=== PATIENT | male | born 1950 | race Caucasian/White ===

== ENCOUNTER 2019-12-28 04:53 | Emergency (ER) | payer OTHER ==
[~2019-12-28] VITALS: Ht 165.1 cm; Wt 72.6 kg
[~2019-12-28 04:53] MED LIST: [UNRECOGNIZED DRUG - CODE]
[2019-12-28] MEDS ORDERED: METHOCARBAMOL 500 MG TAB PO ONE (06:45)
[2019-12-28] MEDS ORDERED: HYDROcodone-ACET 5/325MG TAB PO ONE (07:30)
[2019-12-28 08:37] VITALS: BP 137/93
== END 2019-12-28 08:37 | disposition home or self-care (01) ==
LOC: ER 04:53
DX: M54.31 Sciatica, right side (principal); M79.651 Pain in right thigh; Z79.899 Other long term (current) drug therapy
CPT/HCPCS: 72100; 73562

== ENCOUNTER 2022-03-27 07:57 | Emergency (ER) | payer OTHER ==
[~2022-03-27] VITALS: Ht 165.1 cm; Wt 73.9 kg
[2022-03-27] MEDS ORDERED: LIDOCAINE 2% JELLY 11ml (GLYDO) UR ONE (08:15)
[2022-03-27] MEDS ORDERED: TAMSULOSIN HYDROCHLORIDE 0.4 MG CAP PO ONE (08:15)
[2022-03-27 09:08] LABS: Urine Amorphous Crystal FEW /hpf (None Seen); Urine Bacteria NONE SEEN /hpf (None Seen); Urine Blood Negative /uL (Negative); Urine Specific Gravity 1.012 (1.001-1.035); Urine WBC 1 /hpf (0 - 3)
[2022-03-27] MEDS ORDERED: CIPR-173 PO (09:41)
[2022-03-27 11:27] VITALS: BP 140/82
== END 2022-03-27 11:48 | disposition home or self-care (01) ==
LOC: ER 07:57
DX: N40.0 Benign prostatic hyperplasia without lower urinary tract symptoms (principal); R33.9 Retention of urine, unspecified
CPT/HCPCS: 51702; 81001

== ENCOUNTER 2025-03-23 12:55 | Emergency (ER) | payer OTHER ==
[~2025-03-23] VITALS: Ht 165.1 cm; Wt 71.3 kg
[~2025-03-23 12:55] MED LIST changes: +CIPR-173 PO
--- NOTE | 2025-03-23 13:51 | ED.PDOC ---
General HPI Comments HPI: 75 y/o M, with PMHx of prostate enlargement and arthritis presents to the ED for CC of urinary retention. Patient reports, that he has been unable to urinate since, 2330 last night (03/22/25). Patient reports, that he took double his prescription of Flomax with no relief. Patient denies abdominal distension, nausea, vomiting, or fever. No other associated symptoms or modifying factors present at this time. Patient is awaiting Urology intervention in May at this hospital by Dr. Barrientos. Past Medical history: PROSTATE ENLARGEMENT, ARTHRITIS, RIGHT NEPHRECTOMY Past Surgical history: DENIES ANY Medications: FLOMAX Social History: Denies smoking, ETOH, and drug use. Allergies: NKA LUMA: HPI: Poor Historian. REVIEW OF SYSTEMS: CONSTITUTIONAL: Denies acute: fever, diaphoresis, chills, generalized weakness. HEAD: Denies acute: headache, photophobia Eyes: Denies acute: Double vision, vision loss, eye pain, eye discharge. EARS: Denies acute: tinnitus, hearing loss, ear discharge, ear pain, THROAT: Denies acute: sore throat, swelling, difficulty swallowing , pain with swallowing, change in voice. NECK: Denies acute: neck pain, neck swelling, stiff neck. HEART: Denies acute : chest pain, palpitations, LUNGS: Denies acute: SOB, wheezing, cough, hemoptysis ABDOMEN: Denies acute: Nausea, Vomiting, diarrhea, melena , hematemesis, hematochezia SKIN: Denies acute: rash, redness, lesions, itchiness. EXTREMITIES: Denies acute: calf pain, numbness, tingling, weakness, denies pain in extremity. Denies acute: Low back pain. Neuro: Denies acute: focal neurological deficit, motor or sensory focal neurological deficit, tremors, seizure like activity, confusion, dizziness, change in mental status, loss of bowel or bladder function, cauda equina like symptoms. : Denies acute: dysuria, hematuria, flank pain, increase in urinary frequency. PSYCH: Denies acute: hallucination, suicidal ideation, homicidal ideation. PHYSICAL EXAM: General: ---[id number]-----acute distress, awake and alert. Head: normocephalic, atraumatic. Neck: supple, trachea is midline, no swelling. Throat: Normal phonation. Eyes:, no erythema, no purulent discharge, no proptosis, no icterus. Heart: regular rate, regular rhythm, no significant murmur appreciated. Lungs: no apparent respiratory distress, Able to speak in full sentences. No wheezing, no rhonchi, no crackles. No stridors Clear to auscultation bilaterally. Abdomen: Suprapubic tender to palpation, non distended, soft, no guarding, no rebound, + bowel sounds. Neuro: Awake, Alert, oriented to name, self, situation, follows commands GCS=15. Speech is normal. Skin: no petechia, no purpura, no cyanosis, non-pale, not jaundice. Lower extremities: --no - Pitting edema no deformity, no focal swelling, no calf TTP. Makes eye contact. moves all four extremities. Face: no apparent facial droop. Ambulating in the ED independently. ED COURSE: DISCLAIMER: This medical document was created using an electronic medical record system with voice recognition software and computerized dictation system. Although this document has been carefully reviewed, there might still be some phonetic and typographical errors. Occasional wrong-word or "sound-alike" substitutions may have occurred due to the inherent limitations of voice recognition software. These areas are purely typographical due to imperfections of the software programs and do not reflect any compromise in the patient's medical care. Please read the chart carefully and recognize, using context, where these substitutions have occurred. Chief Complaint: Urinary Time Seen by MD: 13:10 Primary Care Provider: SULTANA Reviewed notes: Nurses Notes, Medications, Allergies Allergies: Coded Allergies: NO KNOWN ALLERGIES (Unverified , 05/04/10) Home Meds Active Scripts Ciprofloxacin Hcl (Cipro) 500 Mg Tab, 1 TAB PO BID for 7 Days, #14 TAB Prov:DAVID ZAMORA MD 03/27/22 Reported Medications Fexofenadine Hcl (Wendy) 30 Mg/5 Ml Naida 05/04/10 Information Source: Patient Mode of Arrival: Ambulatory Severity: Moderate Inability to void: Moderate Timing: Hours Duration: Since onset Has not urinated for: Hours (12) Prehospital treatment: None Onset: Spontaneous Symptoms: Inability to void History of: None Location: None Penile discharge: None Modifying factors: None associated signs and symptoms: None Was a procedure done? Was a procedure done?: No Differential Diagnosis Kidney stone (Female): N/A Kidney stone (Male): N/A Penile/Scrotal: Urinary Retention Urinary Problem (Male): Bladder Outlet, Bladder Obstruction, Epididymitis, Prostatitis, Plelonephritis, Post op Complications, Renal Failure, Urethritis, Urinary Retention, Urolithiasis, UTI, Other (MALE URINARY PROBLEMSDDX BPH, OBSTRUCTING NEOPLASM, BLADDER PATHOLOGY, OBSTRUCTION STONE. PHYMOSIS/PAPRPHYMOSIS, CAUDA EQUINA SYNDROME, UTI.) Urinary Problem (Female): N/A X-Ray, Labs, Meds, VS Vital Signs Date Time Temp Pulse Resp B/P (MAP) Pulse Ox O2 Delivery O2 Flow Rate FiO2 03/23/25 17:00 61 16 128/72 (90) 99 03/23/25 16:30 98.8 63 16 134/77 (96) 99 98.8 03/23/25 16:30 63 16 99 Room Air* 0 21 03/23/25 15:34 65 16 97 Room Air 03/23/25 15:34 97.5 65 16 132/84 (100) 97 97.5 03/23/25 13:25 97.7 65 17 132/89 (103) 97 97.7 Lab Test 03/23/25 14:04 03/23/25 13:26 Range/Units White Blood Count 6.1 4.4-10.8 10^3/uL Red Blood Count 5.29 4.5-5.90 10^6/uL Hemoglobin 16.3 13.5-17.5 g/dL Hematocrit 46.2 41.0-53.0 % Mean Corpuscular Volume 87.4 80.0-100.0 fL Mean Corpuscular Hemoglobin 30.8 28.0-32.0 pg Mean Corpuscular Hemoglobin Concent 35.2 32.0-36.0 g/dL Red Cell Distribution Width 13.2 11.8-14.3 % Platelet Count 154 140-450 10^3/uL Mean Platelet Volume 6.7 L 6.9-10.8 fL Neutrophils (%) (Auto) 89.2 H 37.0-80.0 % Lymphocytes (%) (Auto) 4.2 L 10.0-50.0 % Monocytes (%) (Auto) 5.8 0.0-12.0 % Eosinophils (%) (Auto) 0.6 0.0-7.0 % Basophils (%) (Auto) 0.2 0.0-2.0 % Neutrophils # (Auto) 5.5 1.6-8.6 10 ^3/uL Lymphocytes # (Auto) 0.3 L 0.4-5.4 10 ^3/uL Monocytes # (Auto) 0.4 0-1.3 10 ^3/uL Eosinophils # (Auto) 0 0-0.8 10 ^3/uL Basophils # (Auto) 0 0-0.2 10 ^3/uL Nucleated Red Blood Cells 0.1 % Sodium Level 142 136-145 mmol/L Potassium Level 4.4 3.5-5.1 mmol/L Chloride Level 106 98-107 mmol/L Carbon Dioxide Level 27 20-31 mmol/L Anion Gap 9 5-15 Blood Urea Nitrogen 23 9-23 mg/dL Creatinine 1.28 0.700-1.30 mg/dL Glomerular Filtration Rate Calc 59 >90 mL/min BUN/Creatinine Ratio 18.0 10.0-20.0 Serum Glucose 100 74-106 mg/dL Calcium Level 9.4 8.7-10.4 mg/dL Total Bilirubin 1.4 H 0.2-1.0 mg/dL Aspartate Amino Transferase (AST) 25 13-40 U/L Alanine Aminotransferase (ALT) 18 7-40 U/L Alkaline Phosphatase 73 46-116 U/L Total Protein 6.8 5.7-8.2 g/dL Albumin 4.7 3.2-4.8 g/dL Urine Color Light-yellow Yellow Urine Clarity Clear Clear Urine pH 6.0 5.0-9.0 Urine Specific [place] 1.015 1.001-1.035 Urine Protein Negative Negative Urine Ketones Negative Negative Urine Blood Negative Negative /uL Urine Nitrite Negative Negative Urine Bilirubin Negative Negative Urine Urobilinogen Normal Negative mg/dL Urine Leukocyte Esterase Negative Negative /uL Urine RBC 1 0 - 3 /hpf Urine Microscopic WBC 1 0-3 /HPF Urine Squamous Epithelial Cells Few <5 /hpf Urine Bacteria None seen None Seen /hpf Urine Glucose Normal Normal mg/dL [facility] [id number] [facility] [id number] Ph: [phone] DIAGNOSTIC IMAGING Diagnostic Imaging Report : [id number] Signed PATIENT: GEOVANI GE ACCT: [id number] UNIT: [id number] : 1950 LOC: ER ROOM / BED: / AGE / SEX: 75 / M ADM STATUS: REG ER SERVICE 1356 ORDERING PHYSICIAN: BENNY NICOLE DO PROCEDURE(s): ABPL - CT AB PEL WO CON-NO ORAL OR IV REASON: urinary retention ORDER NUMBER(s): [id number], ACCESSION NUMBER(s): [id number] Indication: urinary retention Technique: CT axial images of the abdomen and pelvis are obtained without contrast. Coronal and sagittal reformats were obtained. Radiation Dose Information: CTDI volume is 5.7 mGy. Dose-length product is 290.31 mGy*cm Comparison: None FINDINGS: There is limited interpretation of the abdomen and pelvis without administration of intravenous contrast. Lung bases demonstrate atelectasis. 4 mm right lower lobe solid nodule. Adrenal glands, spleen unremarkable in shape. Pancreas poorly characterized. Liver unremarkable in shape. No CT evidence for cholelithiasis. Right kidney absent. Left kidney demonstrates no hydronephrosis / nephrolithiasis. Stomach is partially distended. Small bowel loops are demonstrating fecal like contents. Moderate volume stool in the colon. Normal appendix. Abdominal aortic atherosclerotic disease. Bladder distention. Prostate enlarged measuring 6.1 cm transversely. No free pelvic fluid. No inguinal lymphadenopathy. Moderate to advanced thoracolumbar degenerative disc disease. Ankylosis at L5- S1. IMPRESSION: Limited evaluation without contrast. Marked distention bladder which could be secondary to outlet obstruction, neur ogenic bladder. Prostatomegaly which may be resulting in bladder outlet obstruction. Correlate with PSA levels and urology consultation. Fecal like contents within the small bowel which can be seen with ileus, hypomotility, bowel obstruction. Moderate volume stool in the colon. 4 mm right lower lobe solid nodule. Recommend follow-up per Fleischner society criteria. Congenital absence of the right kidney. ATED BY: JESSICA WRIGHT MD DICTATED DATE/TIME: 03/23/25 6308 SIGNED BY: JESSICA WRIGHT MD SIGNED DATE/TIME: 03/23/25 1438 CC: Time of 1ST Reevaluation: 13:40 Reevaluation 1ST: Unchanged Patient Education/Counseling: Diagnosis, Treatment Family Education/Counseling: No Family Present Comments Patient left AMA. Patient was given a copy of his CT scan report for follow up. Departure 1 Departure Time of Disposition: 14:48 Impression: Primary Impression: Acute urinary retention Additional Impressions: BPH (benign prostatic hyperplasia) Abnormal finding on CT scan Pulmonary nodule Left against medical advice Disposition: LEFT AGAINST MEDICAL ADVICE Admit to: Tele Condition: Guarded Additional Instructions: Left against medical advice Discharged With: Self Critical Care Note Critical Care Time?: No Heart Score Heart Score: Heart Score Response (Comments) Value History N/A 0 EKG N/A 0 Age N/A 0 Risk Factors N/A 0 Troponin N/A 0 Total 0 I personally scribed for BENNY NICOLE DO ([email or web address]) on 03/23/25 at 13:51. Electronically submitted by Lina Nails ([email or web address]). I personally scribed for BENNY NICOLE DO ([email or web address]) on 03/23/25 at 14:03. Electronically submitted by Lina Nails ([email or web address]). I personally scribed for BENNY NICOLE DO ([email or web address]) on 03/23/25 at 14:45. Electronically submitted by Lina Nails ([email or web address]). BENNY NICOLE DO Mar 23, 2025 13:51
[2025-03-23 14:28] LABS: Hematocrit 46.2 % (41.0-53.0); Hemoglobin 16.3 g/dL (13.5-17.5); Mean Corpuscular Hemoglobin 30.8 pg (28.0-32.0); Mean Corpuscular Volume 87.4 fL (80.0-100.0); Nucleated Red Blood Cells % 0.1 %
--- NOTE | 2025-03-23 14:39 | DVH ---
Indication: urinary retention Technique: CT axial images of the abdomen and pelvis are obtained without contrast. Coronal and sagit addison reformats were obtained. Radiation Dose Information: CTDI volume is 5.7 mGy. Dose-length product is 290.31 mGy*cm Comparison: None FINDINGS: There is limited interpretation of the abdomen and pelvis without administration of intravenous contr ast. Lung bases demonstrate atelectasis. 4 mm right lower lobe solid nodule. Adrenal glands, spleen unremarkable in shape. Pancreas poorly characterized. Liver unremarkable in shape. No CT evidence for cholelithiasis. Right kidney absent. Left kidney demonstrates no hydronephrosis / nephrolithiasis. Stomach is partially distended. Small bowel loops are demonstrating fecal like contents. Moderate volume stool in the colon. Normal appendix. Abdominal aortic atherosclerotic disease. Bladder distention. Prostate enlarged measuring 6.1 cm tra nsversely. No free pelvic fluid. No inguinal lymphadenopathy. Moderate to advanced thoracolumbar degenerative disc disease. Ankylosis at L5-S1. IMPRESSION: Limited evaluation without contrast. Marked distention bladder which could be secondary to outlet obstruction, neurogenic bladder. Prostatomegaly which may be resulting in bladder outlet obstruction. Correlate with PSA levels and u rology consultation. Fecal like contents within the small bowel which can be seen with ileus, hypomotility, bowel obstruct ion. Moderate volume stool in the colon. 4 mm right lower lobe solid nodule. Recommend follow-up per Fleischner society criteria. Congenital absence of the right kidney.
[2025-03-23 14:43] LABS: Alanine Aminotransferase 18 U/L (7-40); Albumin 4.7 g/dL (3.2-4.8); Alkaline Phosphatase 73 U/L (46-116); Anion Gap 9 (5-15); BUN/Creatinine Ratio 18.0 (10.0-20.0); Blood Urea Nitrogen 23 mg/dL (9-23); Calcium 9.4 mg/dL (8.7-10.4); Carbon Dioxide 27 mmol/L (20-31); Chloride 106 mmol/L (98-107); Glucose 100 mg/dL (74-106); Potassium 4.4 mmol/L (3.5-5.1); Sodium 142 mmol/L (136-145); Total Protein 6.8 g/dL (5.7-8.2)
[2025-03-23 14:44] LABS: Bilirubin, Total 1.4 mg/dL (0.2-1.0)
[2025-03-23 16:07] LABS: Urine Protein, UAD Negative (Negative)
[2025-03-23 16:30] VITALS: PULSE 63; RESP 16; TEMP 98.8; O2SAT 99
[2025-03-23 17:00] VITALS: BP 128/72; PULSE 61; RESP 16; O2SAT 99
== END 2025-03-23 18:02 | disposition left against medical advice (07) ==
LOC: ER 12:55
DX: N40.1 Benign prostatic hyperplasia with lower urinary tract symptoms (principal); R33.9 Retention of urine, unspecified; R93.89 Abnormal findings on diagnostic imaging of other specified body structures; R91.1 Solitary pulmonary nodule; M19.90 Unspecified osteoarthritis, unspecified site; Z90.5 Acquired absence of kidney; Z79.899 Other long term (current) drug therapy
CPT/HCPCS: 36415; 51702; 74176; 80053; 81001; 85025; 99284; A4344